=== PATIENT | female | born 1975 | race Caucasian/White ===

== ENCOUNTER → 2019-10-29 | Outpatient (CLI) | payer SELFPAY ==
[~2019-10-29] MED LIST: ATOXIMETIN-B1 CAP PO; DIOVAN HCT 12.51 TAB PO; LOMOTIL 0.025 M1 TA1 PO; MOTRIN800 MG PO; Metformin Hydr500 MG PO; ZOFRAN ODT4 MG SL
== END | disposition home or self-care (01) ==
LOC: COVID19 00:19
PROVIDERS: ATTEND Family Medicine
DX: Z20.828 Contact with and (suspected) exposure to other viral communicable diseases (principal)